=== PATIENT | female | born 1965 | race Caucasian/White ===

== ENCOUNTER 2020-03-11 08:14 | Outpatient (CLI) | payer OTHER, SELFPAY ==
--- NOTE | ~2020-03-11 | MM_ITS ---
EXAMINATION: MM screening [facility] BI w kiara HISTORY: Screening mammogram TECHNIQUE: Craniocaudal and mediolateral oblique 3-D tomosynthesis images were obtained and synthetic 2-D images were generated. CAD analysis was submitted and interpreted. COMPARISON: Comparison to multiple prior studies sequentially, with oldest reviewed study dated 09/12. BREAST PARENCHYMAL COMPOSITION: There are scattered areas of fibroglandular density. FINDINGS: There is no evidence of suspicious mass, calcification, or architectural distortion to sugg est malignancy in either breast. There has been no suspicious interval change. IMPRESSION: 1. No mammographic evidence of malignancy. 2. Recommend routine screening mammography in one year. BI-RADS Category 1: Negative Reviewed, dictated and finalized at location A.
== END 2020-03-11 08:15 | disposition home or self-care (01) ==
LOC: ANHIMG 08:16
PROVIDERS: PCP Family Medicine; Visit Provider Obstetrics & Gynecology
DX: Z12.31 Encounter for screening mammogram for malignant neoplasm of breast (principal)
CPT/HCPCS: 77063; 77067

== ENCOUNTER 2021-03-16 15:00 | Outpatient (CLI) | payer OTHER, SELFPAY ==
--- NOTE | ~2021-03-16 | MM_ITS ---
EXAMINATION: MM screening [facility] BI w kiara HISTORY: Screening mammogram TECHNIQUE: Craniocaudal and mediolateral oblique 3-D tomosynthesis images were obtained and synthetic 2-D images were generated. CAD analysis was submitted and interpreted. COMPARISON: 03/11/2020, 11/28/2018, 11/17/2017 bilateral digital screening mammogram examinations BREAST PARENCHYMAL COMPOSITION: The breasts are almost entirely fatty. FINDINGS: There is no evidence of suspicious mass, calcification, or architectural distortion to sugg est malignancy in either breast. There has been no suspicious interval change. IMPRESSION: 1. No mammographic evidence of malignancy. 2. Recommend routine screening mammography in one year. BI-RADS Category 1: Negative Reviewed, dictated and finalized at location A.
== END 2021-03-16 15:01 | disposition home or self-care (01) ==
LOC: ANHIMG 15:03
PROVIDERS: PCP Family Medicine; Visit Provider Obstetrics & Gynecology
DX: Z12.31 Encounter for screening mammogram for malignant neoplasm of breast (principal)
CPT/HCPCS: 77063; 77067

== ENCOUNTER 2022-04-07 13:42 | Outpatient (CLI) | payer OTHER, SELFPAY ==
--- NOTE | ~2022-04-07 | MM_ITS ---
EXAMINATION: MM screening [facility] BI w kiara HISTORY: Screening mammogram, family history of breast cancer in her mother. TECHNIQUE: Craniocaudal and mediolateral oblique 3-D tomosynthesis images were obtained and synthetic 2-D images were generated. CAD analysis was submitted and interpreted. COMPARISON: 03/16/2021, 03/11/2020 BREAST PARENCHYMAL COMPOSITION: There are scattered areas of fibroglandular density. FINDINGS: There is no suspicious mass, calcification, or architectural distortion to suggest malignan cy in either breast. There has been no suspicious interval change. IMPRESSION: 1. No mammographic evidence of malignancy. 2. Recommend routine screening mammography in one year. BI-RADS Category 1: Negative Reviewed, dictated and finalized at location A.
== END 2022-04-07 13:43 | disposition home or self-care (01) ==
LOC: ANHIMG 13:45
PROVIDERS: Visit Provider Obstetrics & Gynecology
DX: Z12.31 Encounter for screening mammogram for malignant neoplasm of breast (principal)
CPT/HCPCS: 77063; 77067

== ENCOUNTER → 2023-05-27 15:23 | Outpatient (CLI) | payer OTHER, SELFPAY ==
--- NOTE | ~2023-05-27 | MM_ITS ---
EXAMINATION: MM screening [facility] BI w kiara HISTORY: Screening mammogram TECHNIQUE: Craniocaudal and mediolateral oblique 3-D tomosynthesis images were obtained and synthetic 2-D images were generated. CAD analysis was submitted and interpreted. COMPARISON: 04/07/2022, 03/16/2021, 03/11/2020 bilateral screening mammogram examinations BREAST PARENCHYMAL COMPOSITION: There are scattered areas of fibroglandular density. FINDINGS: There is no evidence of suspicious mass, calcification, or architectural distortion to sugg est malignancy in either breast. There has been no suspicious interval change. IMPRESSION: 1. No mammographic evidence of malignancy. 2. Recommend routine screening mammography in one year. BI-RADS Category 1: Negative Reviewed, dictated and finalized at location B.
== END ==
PROVIDERS: PCP Emergency Medicine; Visit Provider Obstetrics & Gynecology
DX: Z12.31 Encounter for screening mammogram for malignant neoplasm of breast (principal)
CPT/HCPCS: 77063; 77067

== ENCOUNTER 2023-07-07 08:45 | Day surgery (SDC) | payer OTHER, SELFPAY ==
[2023-06-15 08:36] VITALS: BMI 29.4
[2023-07-07 09:44] VITALS: BMI 29.0
--- NOTE | 2023-07-07 10:12 | P.PNAN_ITS ---
Anes - Initial Pre Proc Eval Procedure: Operation Date: 07/07/23 11:00 Proposed Procedures p Diagnostic Colonoscopy - Syd Duron MD Date/Time: 07/07/23 10:12 Surgeon: Syd Duron MD Pre Op Diagnosis: History of Colon Polyps Patient Data Age: 58 Gender: F Height: 1.7 m Weight: 84.2 kg Allergies Allergy/AdvReac Type Severity Reaction Status Date / Time No Known Allergies Allergy Verified 06/21/23 11:56 Home Medications Medication Instructions Recorded Confirmed Type atorvastatin 40 mg tablet (Lipitor) 40 mg PO QHS #90 tabs 08/06/22 07/07/23 Rx levothyroxine 50 mcg tablet See Rx Instructions .Route 04/26/23 07/07/23 Rx .COMPLEX #90 tabs valacyclovir 500 mg tablet 500 mg PO DAILY #90 tabs 05/09/23 07/07/23 Rx (Valtrex) Patient hx anesthesia problems: none Family hx anesthesia problems: none Results Review: All pre-operative results and documents have been reviewed as part of the pre- operative evaluation. [facility] Family History Family History Sibling Carcinoma of colon Family history of rheumatoid arthritis Father Family history of congestive heart failure Depression Family history of cardiovascular disease Mother Family history of malignant neoplasm of breast in first degree relative, Onset Age: 40 Social History Social History Smoking status: Never smoker Alcohol intake: current Drinks per week: 1 Substance use: never Substance use type: does not use Living arrangements: with family Additional living arrangements comments: [place], Occupation/Education: retired Gender identity (if verbalized by the patient): Female Sexual Orientation (if Verbalized by the Patient): Straight or Heterosexual Spiritual care concerns: No Anes - Eval Final PreProcedure Day of Procedure 07/07/23 10:12 Patient weight: overweight Heart: regular rate and rhythm Lungs: clear to auscultation Airway: Mallampati scale class II Neurological: alert and oriented Last oral intake: >/= 8 hours ASA classification: II Emergent: no Anesthetic plan: proceed Anesthesia type and monitoring: general GIVS and standard monitoring Results Review: All pre-operative results and documents have been reviewed as part of the pre- operative evaluation. Informed Consent: The patient's anesthetic plan and its attendant risks and benefits were discussed with the patient/family/POA. Questions were solicited and answers provided to the satisfaction of the patient/family/POA.
[2023-07-07] MEDS: LACTATED RINGERS 1,000 ML 150 ML IV CONT (10:17)
--- NOTE | 2023-07-07 10:50 | PM.HPGS ---
History of Present Illness History of Present Illness Consent: Risks, benefits, and alternatives have been discussed and questions answered. Patient agrees to proceed with procedure. Chief complaint: History of Colon Polyps Narrative: Kathy Montana is a 58 year old female with colon polyp in 2018, sister had colon cancer Review of Systems Constitutional: Constitutional: Denies headache(s) and Denies weakness Eyes: Eyes: Denies blurry vision ENT: Reports Normal hearing present, Denies headache(s) and Denies neck pain Cardiovascular: Cardiovascular: Denies chest pain and Denies dyspnea Respiratory: Respiratory: Denies dyspnea Gastrointestinal: Gastrointestinal: Reports no additional gastrointestinal complaints Genitourinary: Genitourinary: Denies dysuria Musculoskeletal: Musculoskeletal: Denies neck pain Integumentary/Breasts: Skin/Breast: Denies dry skin Neurologic: Reports Normal hearing present, Denies headache(s) and Denies weakness Psychiatric: Psychiatric: Denies anxiety Endocrine: Endocrine: Denies change in body appearance Hematologic/Lymphatic: Hematologic/Lymphatic: Denies easy bleeding Allergic/Immunologic: Allergic/Immunologic: Denies urticaria PMFSH Past Medical History Medical History (Updated 07/07/23 @ 10:51 by Syd Duron MD) Family history of colon cancer Family History Family History Sibling Carcinoma of colon Family history of rheumatoid arthritis Father Family history of congestive heart failure Depression Family history of cardiovascular disease Mother Family history of malignant neoplasm of breast in first degree relative, Onset Age: 40 Social History Social History Smoking status: Never smoker Alcohol intake: current Drinks per week: 1 Substance use: never Substance use type: does not use Living arrangements: with family Additional living arrangements comments: Tom, Occupation/Education: retired Gender identity (if verbalized by the patient): Female Sexual Orientation (if Verbalized by the Patient): Straight or Heterosexual Spiritual care concerns: No Meds Home Medications and Allergies Home Medications Medication Instructions Recorded Confirmed Type atorvastatin 40 mg tablet (Lipitor) 40 mg PO QHS #90 tabs 08/06/22 07/07/23 Rx levothyroxine 50 mcg tablet See Rx Instructions .Route 04/26/23 07/07/23 Rx .COMPLEX #90 tabs valacyclovir 500 mg tablet 500 mg PO DAILY #90 tabs 05/09/23 07/07/23 Rx (Valtrex) Allergies Allergy/AdvReac Type Severity Reaction Status Date / Time No Known Allergies Allergy Verified 06/21/23 11:56 Exam Const: General: comfortable and no acute distress HENMT: Face/Nose/Sinus: Normal nares present Eyes: General: appearance normal, both eyes and all related structures Neck: Neck: no JVD Resp: Auscultation: clear to auscultation bilaterally Cardio: Rate: regular rate Rhythm: regular rhythm GI: Inspection: non-distended GI Palp: Yes Soft to palpation Skin: General skin exam: normal color Neuro: General: gait normal Speech: normal speech Extrem: General: normal to inspection Psych: Mental Status: mental status grossly normal Assessment and Plan Assessment and plan (1) History of colon polyps: Code(s): Z86.010 - Personal history of colonic polyps Status: Acute Assessment and Plan: colonoscopy (2) Family history of colon cancer: Code(s): Z80.0 - Family history of malignant neoplasm of digestive organs Status: Acute
[2023-07-07 11:14] VITALS: BP 129/72; PULSE 86; RESP 16; O2SAT 100
[2023-07-07 11:24] VITALS: BP 135/67; PULSE 88; RESP 16; O2SAT 98
--- NOTE | 2023-07-07 11:25 | WPDANESPN ---
Anes - Prog Note Post-Op Date/Time: 07/07/23 11:25 Cardiovascular status: normal Respiratory status: normal Airway patency: baseline Mental status: baseline Post-Op hydration status: normal Pain Score (VAS): 0 Patient Feedback: Patient satisfied with anesthetic care.
[2023-07-07 11:34] VITALS: BP 135/72; PULSE 76; RESP 16; O2SAT 100
== END 2023-07-07 11:44 | disposition home or self-care (01) ==
PROVIDERS: PCP Emergency Medicine; Visit Provider Internal Medicine Gastroenterology
PROC: 0DJD8ZZ Inspection of Lower Intestinal Tract, Via Natural or Artificial Opening Endoscopic (ICD-10-PCS; CPT 45378; principal; 2023-07-07 11:00)
DX: Z86.010 Personal history of colon polyps (principal); D12.3 Benign neoplasm of transverse colon; K64.8 Other hemorrhoids
CPT/HCPCS: 45385

== ENCOUNTER 2023-07-07 09:08 | Outpatient (NON) | payer OTHER, SELFPAY | END 2023-07-07 09:09 | disposition home or self-care (01) | PROVIDERS: PCP Emergency Medicine; Visit Provider Internal Medicine Gastroenterology | DX: Z12.11 Encounter for screening for malignant neoplasm of colon (principal); Z80.0 Family history of malignant neoplasm of digestive organs | CPT/HCPCS: 88305 ==

== ENCOUNTER 2024-05-29 11:24 | Outpatient (CLI) | payer OTHER, SELFPAY ==
--- NOTE | ~2024-05-29 | MM_ITS ---
EXAMINATION: MM screening kv[facility] BI w kiara HISTORY: Screening TECHNIQUE: Craniocaudal and mediolateral oblique 3-D tomosynthesis images were obtained and synthetic 2-D images were generated. CAD analysis was submitted and interpreted. COMPARISON: Comparison to multiple prior studies sequentially, with oldest reviewed study dated 04/07. BREAST PARENCHYMAL COMPOSITION: Not dense: There are scattered areas of fibroglandular density. FINDINGS: There is no evidence of suspicious mass, calcification, or architectural distortion to sugg est malignancy in either breast. There has been no suspicious interval change. IMPRESSION: 1. No mammographic evidence of malignancy. 2. Recommend routine screening mammography in one year. BI-RADS Category 1: Negative Reviewed, dictated and finalized at location B.
== END 2024-05-29 11:25 | disposition home or self-care (01) ==
LOC: MICIMG 11:25
PROVIDERS: PCP Obstetrics & Gynecology; Visit Provider Obstetrics & Gynecology
DX: Z12.31 Encounter for screening mammogram for malignant neoplasm of breast (principal)
CPT/HCPCS: 77063; 77067

== ENCOUNTER 2024-06-22 09:26 | Outpatient (CLI) | payer OTHER, SELFPAY ==
--- NOTE | ~2024-06-22 | XR_ITS ---
AP and lateral views of the left hip Clinical history: Pain Findings: No acute fracture or dislocation is seen. Osseous alignment is anatomic. Left hip joint is intact. Soft tissues are unremarkable. Impression: No significant abnormality is seen. Reviewed, dictated and finalized at location M. Impression: No significant abnormality is seen.
== END 2024-06-22 09:27 | disposition home or self-care (01) ==
PROVIDERS: PCP Nurse Practitioner Family; Visit Provider Nurse Practitioner Family
DX: M25.552 Pain in left hip (principal)
CPT/HCPCS: 73502

== ENCOUNTER 2024-10-16 08:00 | Outpatient (RCR) | payer OTHER, SELFPAY ==
--- NOTE | 2024-07-27 10:51 | PTOPEVAL1 ---
Assessment and note entered by Becca Turcios, PT Evaluation Information Assessment Status Evaluation Diagnosis sciatica unspecified side M54.30 ICD-10 Condition Codes (PT) Pain in left hip M25.552,Weakness R53.1 Other ICD-10 Condition Codes ( stiffness of left hip joint M25.652 PT) Subjective Information Pt went to a chiropractor who told her slipped disc, got better, then returned this year. Reports hip pain, back pain, tightness, tingling shooting pain down the leg, numbness and tightness . Notes tingling will wrap around leg from outside to in lower left leg to big toe does work out 3x weekly, squats with weight increase pain in the left hip unweight will eventually bother it, and bridges sometimes bother it. Reports the pain she is feeling is not her normal back pain, normally will loosen her back at in the morning with stretches but hasn't been having back pain with this Reported Pain Level Pain Score 1: Self Report Assessment PT Clinical Summary Pt presents with pain in posterior and inferior hip in obturator area, and reports numbness and tingling that follows the L5 nerve root pattern. Evaluation shows severely limited bilat hip ROM with capsular end-feels, mildly reduced hip and core strength, and possible leg length discrepancy . Focus initially will be to improve hip ROM and flexibility, then address radicular pattern should it continue to present. Pt will benefit from therapy in order to address ROM and strength deficits, improve function without pain, and educate patient on maintaining joint mobility independently after therapy conclusion. Plan of Care Interventions Electrical Stimulation,Hot Pack/Cold Pack,Manual Therapy,Neuro Re-education,Therapeutic Activities, Therapeutic Exercise,Self-Care/Home Management, Ultrasound PT Services Indicated Yes Treatment Frequency and 1-2x weekly x 12 visits Duration These treatments will address the objective and functional deficits as defined above. The patient will be advanced safely and appropriately in order for the patient to progress towards his/her prior level of function. Additional exercises will be introduced and as well as a comprehensive home exercise program upon discharge, if needed, ?to ensure carryover of functional gains achieved in the clinic. This treatment plan has been reviewed and agreement upon by the patient.
--- NOTE | 2024-07-27 10:51 | OPREHPOC ---
Outpatient Therapy Plan of Care This is a Multidisciplinary Plan of Care that may contain components documented by all disciplines (PT, OT, and ST.) PT Problem 1 PT Problem #1 Knowledge Deficit PT Goal 1 Goal / Goal Update Pt will be independent in HEP Pt will verbalize understanding of diagnosis and prognosis Target Visit 6 PT Problem 2 PT Problem #2 Pain PT Goal 1 Goal / Goal Update Pt will report lowest pain rating at 0/10 to show improvement in overall discomfort Target Visit 6 PT Goal 2 Goal / Goal Update Pt will report greatest pain level at 3/10 or less to improve ADLs and activities Target Visit 12 PT Problem 3 PT Problem #3 Impaired Range of Motion PT Goal 1 Goal / Goal Update Pt will demo hip flexion passive ROM of 120 degrees to show improved joint mobility Pt will demo external rotation L hip joint of 45 degrees for improved joint mobility Target Visit 12
--- NOTE | 2024-08-21 07:57 | PTOPPROG ---
Assessment and note entered by Becca Turcios, PT Evaluation Information Assessment Status Evaluation Diagnosis sciatica unspecified side M54.30 ICD-10 Condition Codes (PT) Pain in left hip M25.552,Weakness R53.1 Other ICD-10 Condition Codes ( stiffness of left hip joint M25.652 PT) Subjective Information Pt went to a chiropractor who told her slipped disc, got better, then returned this year. Reports hip pain, back pain, tightness, tingling shooting pain down the leg, numbness and tightness . Notes tingling will wrap around leg from outside to in lower left leg to big toe does work out 3x weekly, squats with weight increase pain in the left hip unweight will eventually bother it, and bridges sometimes bother it. Reports the pain she is feeling is not her normal back pain, normally will loosen her back at in the morning with stretches but hasn't been having back pain with this Assessment PT Clinical Summary Pt presents with pain in posterior and inferior hip in obturator area, and reports numbness and tingling that follows the L5 nerve root pattern. Evaluation shows severely limited bilat hip ROM with capsular end-feels, mildly reduced hip and core strength, and possible leg length discrepancy . Focus initially will be to improve hip ROM and flexibility, then address radicular pattern should it continue to present. Pt will benefit from therapy in order to address ROM and strength deficits, improve function without pain, and educate patient on maintaining joint mobility independently after therapy conclusion. Please note addition of lumbar traction to plan of care 08/21/24. Plan of Care Interventions Electrical Stimulation,Hot Pack/Cold Pack,Manual Therapy,Neuro Re-education,Therapeutic Activities, Therapeutic Exercise,Self-Care/Home Management, Ultrasound, mechanical traction PT Services Indicated Yes Treatment Frequency and 1-2x weekly x 12 visits Duration These treatments will address the objective and functional deficits as defined above. The patient will be advanced safely and appropriately in order for the patient to progress towards his/her prior level of function. Additional exercises will be introduced and as well as a comprehensive home exercise program upon discharge, if needed, ?to ensure carryover of functional gains achieved in the clinic. This treatment plan has been reviewed and agreement upon by the patient.
--- NOTE | 2024-09-04 14:47 | PTOPPROG ---
Assessment and note entered by Becca Turcios, PT Evaluation Information Assessment Status Progress Diagnosis sciatica unspecified side M54.30 ICD-10 Condition Codes (PT) Pain in left hip M25.552,Weakness R53.1 Other ICD-10 Condition Codes ( stiffness of left hip joint M25.652 PT) Subjective Information first time has bowled in a few weeks, hip was tight but not near as bad as last time , stretched it and this relieved. Back is doing well. Pt notes yesterday didn't notice any tingling, has more time of not tingling. Has not returned to heavy weight squats but has been trying lite weight squats. Has not tried bridges at [facility] but doing them in therapy have been ok. Self perceived improvement: 80-85% overall Assessment PT Clinical Summary Pt has attended therapy consistently for left hip and leg pain, LLE tingling and numbness, and back pain that is chronic intermittent. Pt reports feeling 80-85% improved overall. She reports decreased tightness, ability to resolve tightness with stretching when it occurs, has reported has had multiple times without N/T and when does have it is less intense. She demonstrates improved left hip motion, and leg length discrepancy which she has been educated regarding DME to address this. She has yet to meet all her goals, but is progressing well. Thus patient will benefit from continued physical therapy to continue progression and prepare patient for independence maintenance upon completion of program. Plan of Care Interventions Electrical Stimulation,Hot Pack/Cold Pack,Manual Therapy,Neuro Re-education,Therapeutic Activities, Therapeutic Exercise,Self-Care/Home Management, Ultrasound PT Services Indicated Yes Treatment Frequency and 1x weekly x 6 visits Duration These treatments will address the objective and functional deficits as defined above. The patient will be advanced safely and appropriately in order for the patient to progress towards his/her prior level of function. Additional exercises will be introduced and as well as a comprehensive home exercise program upon discharge, if needed, ?to ensure carryover of functional gains achieved in the clinic. This treatment plan has been reviewed and agreement upon by the patient.
--- NOTE | 2024-10-16 09:46 | PTOPDC ---
Assessment and note entered by Becca Turcios, PT Evaluation Information Assessment Status Discharge Diagnosis sciatica unspecified side M54.30 ICD-10 Condition Codes (PT) Pain in left hip M25.552,Weakness R53.1 Other ICD-10 Condition Codes ( stiffness of left hip joint M25.652 PT) Subjective Information Pt states her left hip is still slightly more fatigued and sore than left with high level activities like working out. Still has an odd feeling in the bottom of the foot but tingling and numbness is rare and short duration. Tightness in lower leg is improved but still present. Reported Pain Level Pain Score 0: Self Report Assessment PT Clinical Summary Pt has attended therapy consistently for low back, left hip, and radicular symptoms. She has responded very well with near resolution of tightness/radiculopathy, highest pain in hip being a 1/10, is performing high levels activities and progressing these independently with minimal discomfort. Pt has been educated in continuing independently, and when/how to return to therapy if necessary in the future. Thus patient is being discharged for completion of program. Plan of Care PT Services Indicated No
== END 2024-10-22 08:35 | disposition home or self-care (01) ==
LOC: ANHHIPT 08:00
PROVIDERS: PCP Nurse Practitioner Family; Visit Provider Orthopaedic Surgery
DX: M54.30 Sciatica, unspecified side (principal); M25.552 Pain in left hip; R53.1 Weakness
CPT/HCPCS: 97012; 97014; 97110; 97140; 97161; 97750; G0283

== ENCOUNTER 2025-06-04 10:33 | Outpatient (CLI) | payer OTHER, SELFPAY ==
--- NOTE | ~2025-06-04 | MM_ITS ---
EXAMINATION: MM screening kvng BI w kiara HISTORY: Screening TECHNIQUE: Craniocaudal and mediolateral oblique 3-D tomosynthesis images were obtained and synthetic 2-D images were generated. CAD analysis was submitted and interpreted. COMPARISON: 05/27/2023 BREAST PARENCHYMAL COMPOSITION: There are scattered areas of fibroglandular density. FINDINGS: There is no evidence of suspicious mass, calcification, or architectural distortion to suggest malignancy. There has been no suspicious interval change. IMPRESSION: 1. No mammographic evidence of malignancy. Recommend routine screening mammography in one year. BI-RADS Category 2: Benign finding(s) Reviewed, dictated and finalized at location Q. IMPRESSION: 1. No mammographic evidence of malignancy. Recommend routine screening mammogra phy in one year. BI-RADS Category 2: Benign finding(s)
== END 2025-06-04 10:34 | disposition home or self-care (01) ==
LOC: MICIMG 10:34
PROVIDERS: PCP Nurse Practitioner Family; Visit Provider Obstetrics & Gynecology
DX: Z12.31 Encounter for screening mammogram for malignant neoplasm of breast (principal)
CPT/HCPCS: 77063; 77067